=== PATIENT | female | born 1935 ===

== ENCOUNTER 2016-12-13 17:21 | Inpatient (IN) | payer MEDICARE ==
--- NOTE | ~2016-12-13 | EGD ---
EGD REPORT [facility] [address] [place] [address] NAME: SARAH CORDERO : 33 STATUS : DIS IN PAT#: [id number] AGE: 81 ADM/REG DATE : 12/13/16 MR#: [id number] REPORT SERV DATE: 12/29/16 DICTATED BY: KELLY QUINTERO DATE: 12/29/16 REPORT STATUS : Draft TRANSCRIBED BY: [employer] DATE: 12/29/16 Pulmonology Patient Name: Sarah Cordero. Procedure Date: 12/16/2016 1:21 PM Date of : 1935 Attending MD: SENIA QUINTERO MD Procedure Date No Time: 12/16/2016 Procedure: EBUS/NAVIGATION BRONCHOSCOPY Indications: Right lower lobe lung mass Providers: SENIA QUINTERO MD Referring MD: Josie Mixon Medicines: Lidocaine 2% 20 mL Complications: No immediate complications Procedure: Pre-Anesthesia Assessment: - ASA Grade Assessment: III - A patient with severe systemic disease. - After reviewing the risks and benefits, the patient was deemed in satisfactory condition to undergo the procedure. - A History and Physical has been performed. Patient meds and allergies have been reviewed. The risks and benefits of the procedure and the sedation options and risks were discussed with the patient. All questions were answered and informed consent was obtained. Patient identification and proposed procedure were verified prior to the procedure by the physician and the nurse in the pre-procedure area in the procedure room. Mental Status Examination: normal. CV Examination: normal and RRR, no murmurs, no S3 or S4. ASA Grade Assessment: IV - A patient with severe systemic disease that is a constant threat to life. After reviewing the risks and benefits, the patient was deemed in satisfactory condition to undergo the procedure. The anesthesia plan was to use general anesthesia. Immediately prior to administration of medications, the patient was re-assessed for adequacy to receive sedatives. The heart rate, respiratory rate, oxygen saturations, blood pressure, adequacy of pulmonary ventilation, and response to care were monitored throughout the procedure. The physical status of the patient was re-assessed after the procedure. After obtaining informed consent, the Bronchoscope was introduced through the mouth, via the endotracheal tube (the patient was intubated for the procedure) and advanced to the tracheobronchial tree. the BF [id number] was introduced through the and advanced to the. EGD REPORT [facility] [id number] [place]. [address] NAME: SARAH CORDERO : 33 STATUS : DIS IN PAT#: [id number] AGE: 81 ADM/REG DATE : 12/13/16 MR#: [id number] REPORT SERV DATE: 12/29/16 DICTATED BY: KELLY QUINTERO DATE: 12/29/16 REPORT STATUS : Draft TRANSCRIBED BY: [employer] DATE: 12/29/16 The procedure was accomplished without difficulty. The patient tolerated the procedure well. Findings: The endotracheal tube is in good position. The visualized portion of the trachea is of normal caliber. The sebastian is sharp. The tracheobronchial tree was examined to at least the first subsegmental level. Bronchial mucosa is irregular at the orifice of the RLL. EBUS TBNA of lymph node level 11L x 5 passes for cytology EBUS TBNA of lymph node level 4L x 5 passes for cytology EBUS TBNA of lymph node level 7 x 4 passes for cytology EBUS TBNA of lymph node level 4R x 4 passes for cytology EBUS TBNA of lymph node level 11R x 4 passes for cytology Using SuperDimension Edge catheter (Medial), peripheral probe EBUS 17s, and LungVision 3D fluoroscopy, I performed the following biopsies: RLL lung mass transbronchial needle aspirates x 4 passes for cytology RLL lung mass transbronchial brush biopsy x 1 pass for cytology RLL lung mass transbronchial forcep biopsies x 3 passes for histopathology Bronchoalveolar lavage was performed in the right lower lobe of the lung and sent for routine cytology. 30 mL of fluid were instilled. 10 mL were returned. The return was blood-tinged and cellular. Impression: Rapid On-Site Evaluation (LIZ): Preliminary cytology is POSITIVE for malignancy (final results are pending). Recommendation: - Await test results. - Chest X-ray. - Refer to/consult with Oncology. Attending Participation: I personally performed the entire procedure. SENIA QUINTERO MD 12/16/2016 3:45 PM This report has been signed electronically. Number of Addenda: 0 Note Initiated On: 12/16/2016 1:21 PM [address] [id number]
--- NOTE | ~2016-12-13 | HP ---
History And Physical [place] [place]. [address] NAME: FRED CORDERO : 33 STATUS : ADM IN [facility]#: [id number] AGE: 81 ADM/REG DATE : 12/13/16 MR#: [id number] REPORT SERV DATE: 12/14/16 DICTATED BY: AISHWARYA ARRIOLA DATE: 12/13/16 REPORT STATUS : Draft TRANSCRIBED BY: MODL DATE: 12/13/16 DATE OF ADMISSION: 12/13/2016 REASON FOR ADMISSION: Syncope with collapse, also cachexia, failure to thrive, and microcytic anemia, and hematochezia. HISTORY OF PRESENT ILLNESS: Ms. Cordero is an 81-year-old female with history of hypertension, chronic kidney disease who is actually status post hospitalization at [place] [address] during which she was diagnosed with a lung mass and with anticipated EBUS on 12/16/2016 who presents to emergency department today after an event where she was found on the floor but has no recollection of how she got there. According to the son and to the niece, she has had multiple episodes of loss of consciousness particularly when she is at sitting position and tries to arise. The patient, however, denies any dizziness. No chest pain or palpitations. She denies recollection of any these events actually, and the family says that the memory has become more impaired lately. Notably since her previous hospitalization though she has also been eating very little like 1-1/2 cans of Ensure only a day, and she has lost 30 pounds in the last 5 weeks. She denies any abdominal pain, however, that was the chief complaint of her prior admission. She denies any gastrointestinal or genitourinary complaints. However, her niece said that she has had an episode of hematochezia and had been referred to GI for workup based on her iron-deficiency anemia. There has been no shortness of breath, coughing, or wheezing but the son says she is very out of breath and very weak, unable to even walk down the sigala and having difficulty rising on her own. She is requiring full-time care. The patient has no focal neurologic complaints, and she refuses the rehabilitation, however, the son and the niece insists that she is no longer safe to be at home at the present time. There has been some nausea but no vomiting. Remainder of review of systems are negative. PAST MEDICAL HISTORY: As mentioned above. History of iron-deficiency as mentioned. She has history of depression requiring electroconvulsive therapy remotely. MEDICATIONS: Include aspirin, vitamin D, Synthroid, Toprol, Remeron, Prilosec, Pravachol, and B12. ALLERGIES: ALLERGIC TO CODEINE. FAMILY HISTORY: Positive for coronary artery disease. SOCIAL HISTORY: She is a previous smoker but quit 1971. She is . Her is also infirm. PHYSICAL EXAMINATION: VITAL SIGNS: On presentation, blood pressure 111/79, pulse 111, respiratory rate , afebrile . GENERAL: Mildly confused, pallid white female, oriented x3. No apparent distress. HEENT: Pupils are equal and reactive to light. Extraocular movements are intact. No cranial nerve deficits. Dry mucous membranes. Normal oropharynx. History And Physical [address] [address] NAME: FRED CORDERO : 33 STATUS : ADM IN [facility]#: [id number] AGE: 81 ADM/REG DATE : 12/13/16 MR#: [id number] REPORT SERV DATE: 12/14/16 DICTATED BY: AISHWARYA ARRIOLA DATE: 12/13/16 REPORT STATUS : Draft TRANSCRIBED BY: LEONOR DATE: 12/13/16 NECK: Revealed no jugular venous distention, carotid bruits, lymphadenopathy, or goiter. CARDIAC: Regular rate and rhythm. No murmurs, gallops, or rubs. LUNGS: Clear to auscultation bilaterally. Good excursion. ABDOMEN: Soft, nondistended, and nontender. Bowel sounds normoactive. EXTREMITIES: No cyanosis, clubbing, or edema. Good pulses and capillary refill. NEUROLOGIC: 5/5 strength in all four extremities. Normal sensory and motor function x4. SKIN: Warm and dry with poor turgor. PSYCHIATRIC: She is appropriate. LABORATORY EVALUATION: Sodium 138, potassium 3.4, chloride 103, bicarb 24, BUN 18, creatinine 2.2 similar to prior, glucose 115, abdomen 1.7 gammaglobulin 6.2 with normal total protein, normal liver function enzymes. White count 9000, H and H 05/06, platelets 512, MCV of 77. CT of the thorax from 10/23/2016 was reviewed by me. A 4 x 2 cm mass in the right lower lobe was noted with associated air bronchograms but no history of pneumonia. EKG showed inferior Q-waves, QT interval 466. ASSESSMENT AND PLAN: 1. Syncope likely orthostatic. We rechecked orthostatic vital signs. She will be hydrated overnight. We will reassess her blood pressure in the morning. Telemetry overnight, echocardiogram. I see no evidence to suggest pulmonary embolization or a neurological cause such as seizure as a source of her syncopal events and did not recommend further imaging in regard to these. I do, however, recommend repletion of the potassium as she has a somewhat prolonged QT interval and may be at risk of dysrhythmia from that. Magnesium will also be investigated due to her very poor p.o. intake and probability of deficiency there as well. 2. Iron deficiency anemia with history of hematochezia. I am very concerned about a GI bleed. Anemia may in fact contribute to her orthostasis. We will confirm her iron stores here. IV iron will be given, and GI will see her. Stools will be guaiaced to confirm the report. Dr. Leal should be noted had recommended an EGD be done. She will continue on her proton pump inhibitors but given the concern for malignancy she may need both an upper and lower endoscopic evaluation. 3. Cachexia 30 pounds weight loss with diminished p.o. intake, consistent with failure to thrive syndrome. Question of cardiac cachexia with a questionable pulmonary malignancy. This is non spiculated and may very well be a metastasis. Dr. Alejandre will be notified of her hospitalization to proceed with her EBUS. We should, however, be concerned about the possibility of other malignant causes or non malignant causes. If we notice a very elevated gammaglobulin gradient, we will check and see whether this is monoclonal, polyclonal, will be done. Sedimentation rate will be investigated to inspect for chronic inflammatory state. She will be supplemented with Ensure. We will hydrate her, check calorie counts and also increase her Remeron therapy. 4. Generalized weakness. The patient wishes to go home but she does not appear to be in that state to do so. Physical Therapy and [facility] facility placement were recommended. We will consult Case Management. History And Physical [address] [place]. [address] NAME: FRED CORDERO : 33 STATUS : ADM IN PAT#: [id number] AGE: 81 ADM/REG DATE : 12/13/16 MR#: [id number] REPORT SERV DATE: 12/14/16 DICTATED BY: AISHWARYA ARRIOLA DATE: 12/13/16 REPORT STATUS : Draft TRANSCRIBED BY: MODL DATE: 12/13/16 5. Chronic kidney disease. Creatinine same as before. We will see if this improves at all with hydration and follow it closely. ANA/LEONOR Aishwarya Arriola M.D. / [id number] CC: Erin Herrera M.D. Krishnendu Bhadra, M.D.
--- NOTE | ~2016-12-13 | EGD ---
EGD REPORT [facility] [address] [place] [address] NAME: SARAH CORDERO : 33 STATUS : DIS IN PAT#: [id number] AGE: 81 ADM/REG DATE : 12/13/16 MR#: [id number] REPORT SERV DATE: 12/29/16 DICTATED BY: KELLY QUINTERO DATE: 12/29/16 REPORT STATUS : Draft TRANSCRIBED BY: [employer] DATE: 12/29/16 Pulmonology Patient Name: Sarah Cordero. Procedure Date: 12/16/2016 1:21 PM Date of : 1935 Attending MD: SENIA QUINTERO MD Procedure Date No Time: 12/16/2016 Procedure: EBUS/NAVIGATION BRONCHOSCOPY Indications: Right lower lobe lung mass Providers: SENIA QUINTERO MD Referring MD: Josie Mixon Medicines: Lidocaine 2% 20 mL Complications: No immediate complications Procedure: Pre-Anesthesia Assessment: - ASA Grade Assessment: III - A patient with severe systemic disease. - After reviewing the risks and benefits, the patient was deemed in satisfactory condition to undergo the procedure. - A History and Physical has been performed. Patient meds and allergies have been reviewed. The risks and benefits of the procedure and the sedation options and risks were discussed with the patient. All questions were answered and informed consent was obtained. Patient identification and proposed procedure were verified prior to the procedure by the physician and the nurse in the pre-procedure area in the procedure room. Mental Status Examination: normal. CV Examination: normal and RRR, no murmurs, no S3 or S4. ASA Grade Assessment: IV - A patient with severe systemic disease that is a constant threat to life. After reviewing the risks and benefits, the patient was deemed in satisfactory condition to undergo the procedure. The anesthesia plan was to use general anesthesia. Immediately prior to administration of medications, the patient was re-assessed for adequacy to receive sedatives. The heart rate, respiratory rate, oxygen saturations, blood pressure, adequacy of pulmonary ventilation, and response to care were monitored throughout the procedure. The physical status of the patient was re-assessed after the procedure. After obtaining informed consent, the Bronchoscope was introduced through the mouth, via the endotracheal tube (the patient was intubated for the procedure) and advanced to the tracheobronchial tree. the BF [id number] was introduced through the and advanced to the. EGD REPORT [facility] [id number] [place]. [address] NAME: SARAH CORDERO : 33 STATUS : DIS IN PAT#: [id number] AGE: 81 ADM/REG DATE : 12/13/16 MR#: [id number] REPORT SERV DATE: 12/29/16 DICTATED BY: KELLY QUINTERO DATE: 12/29/16 REPORT STATUS : Draft TRANSCRIBED BY: [employer] DATE: 12/29/16 The procedure was accomplished without difficulty. The patient tolerated the procedure well. Findings: The endotracheal tube is in good position. The visualized portion of the trachea is of normal caliber. The sebastian is sharp. The tracheobronchial tree was examined to at least the first subsegmental level. Bronchial mucosa is irregular at the orifice of the RLL. EBUS TBNA of lymph node level 11L x 5 passes for cytology EBUS TBNA of lymph node level 4L x 5 passes for cytology EBUS TBNA of lymph node level 7 x 4 passes for cytology EBUS TBNA of lymph node level 4R x 4 passes for cytology EBUS TBNA of lymph node level 11R x 4 passes for cytology Using SuperDimension Edge catheter (Medial), peripheral probe EBUS 17s, and LungVision 3D fluoroscopy, I performed the following biopsies: RLL lung mass transbronchial needle aspirates x 4 passes for cytology RLL lung mass transbronchial brush biopsy x 1 pass for cytology RLL lung mass transbronchial forcep biopsies x 3 passes for histopathology Bronchoalveolar lavage was performed in the right lower lobe of the lung and sent for routine cytology. 30 mL of fluid were instilled. 10 mL were returned. The return was blood-tinged and cellular. Impression: Rapid On-Site Evaluation (LIZ): Preliminary cytology is POSITIVE for malignancy (final results are pending). Recommendation: - Await test results. - Chest X-ray. - Refer to/consult with Oncology. Attending Participation: I personally performed the entire procedure. SENIA QUINTERO MD 12/16/2016 3:45 PM This report has been signed electronically. Number of Addenda: 0 Note Initiated On: 12/16/2016 1:21 PM [address] [id number]
--- NOTE | ~2016-12-13 | IDS ---
Interim Discharge Summary [facility] [address] [place]. [address] NAME: FRED CORDERO : 33 STATUS : ADM IN PAT#: [id number] AGE: 81 ADM/REG DATE : 12/13/16 MR#: [id number] REPORT SERV DATE: 12/21/16 DICTATED BY: JOSIE MIXON DATE: 12/21/16 REPORT STATUS : Draft TRANSCRIBED BY: MODL DATE: 12/21/16 ADMISSION DATE: 12/13/2016 DISCHARGE DATE: DISCHARGE DIAGNOSES: 1. Failure to thrive with significant weight loss with protein-calorie severe malnutrition. 2. Depression. The patient is seen by Dr. Escamilla, but she refused treatment; however, assessment was a severe depression and Remeron was increased. 3. Non-small cell lung cancer from the EBUS biopsy, seen by Dr. Welch and had a negative MRI of the brain. The patient will go to rehab to improve strength, then decide about her treatment. 4. Hypertension. 5. Chronic kidney disease, stable. 6. Desaturation after the EBUS. The patient needed a couple doses of intravenous Lasix with albumin. 7. Hypoalbuminemia with severe malnutrition. 8. Underlying obesity. HISTORY OF PRESENT ILLNESS: This is an 81-year-old female patient, who came to the hospital with failure to thrive, weight loss, and finding of the upper lung nodule, was scheduled for outpatient biopsy. Please see dictated H and P done by Dr. Sanchez. HOSPITAL COURSE: She was admitted to hospital with following problem and had evaluation with Dr. Alejandre, bronchoscopy. The bronchoscopy was positive for adenocarcinoma, and seen by Dr. Welch regarding the treatment and plan. However, the patient's functional status has been marginally low and recommended getting physical therapy. Meanwhile, she was evaluated by Dr. Escamilla; however, she refused to have an official evaluation with Dr. Escamilla saying she is not depressed. However, multiple expertise are suspecting that she have depression. Her Remeron was increased to 45 mg once at nighttime. I had a long discussion regarding the disposition. The patient seem to be demotivated and weak and had a long discussion with the patient and she decided to go to the rehab place in order to improve her functional status before the treatments decision. Therefore, the disposition was made at [facility]. Currently today [facility] does not have a bed availability, so the patient will be discharged tomorrow to [facility]. After the EBUS, her saturation was gradually going down and yesterday her saturation was 88% on room air with finding of crackles and volume overload evidence. Therefore, the patient was given the albumin and Lasix and did a good output with it and does not require resting oxygen at this point. We are going to stop anymore Lasix because of the chronic kidney disease, and she will be waiting for the discharge when it is available from the [facility]. Overall, had a stable hospitalization except the last couple of days she has been desaturating and she and her family had a long discussion with the multiple doctors here and they all voiced understanding, [facility] even follow this patient. They are not ready for hospice at this moment of discharge and they willing to try to get improvement Interim Discharge Summary [place] [address] [place] [address] NAME: FRED CORDERO : 33 STATUS : ADM IN [facility]#: [id number] AGE: 81 ADM/REG DATE : 12/13/16 MR#: [id number] REPORT SERV DATE: 12/21/16 DICTATED BY: JOSIE MIXON DATE: 12/21/16 REPORT STATUS : Draft TRANSCRIBED BY: LEONOR DATE: 12/21/16 functionally at [facility] after the rehab. BRIAN/LEONOR Josie Mixon M.D. / [id number] CC: Erin Lovett M.D.
--- NOTE | ~2016-12-13 | DS ---
Discharge Summary [facility] [address] [place]. [address] NAME: FRED CORDERO : 33 STATUS : DIS IN PAT#: [id number] AGE: 81 ADM/REG DATE : 12/13/16 MR#: [id number] REPORT SERV DATE: 12/24/16 DICTATED BY: LUZ ELENA TORRES II DATE: 12/23/16 REPORT STATUS : Draft TRANSCRIBED BY: MODL DATE: 12/23/16 ADMISSION DATE: 12/13/2016 DISCHARGE DATE: 12/23/2016 DISCHARGE DIAGNOSES: 1. Failure to thrive with significant weight loss and severe protein-calorie malnutrition. 2. Severe depression. 3. [id number] lung cancer. 4. Hypertension. 5. Acute kidney injury on chronic kidney disease stage 3. 6. Transient hypoxia after EBUS, now resolved. 7. Hypoalbuminemia. 8. Underlying obesity. HOSPITAL COURSE: For details of the patient's hospitalization, please see Dr. Mixon's interim summary from 12/21/2016. The patient was awaiting transfer to long term facility for further rehab; however, her creatinine started to trend up and went from her baseline of around 1.7 up to 2 and then 2.5, peaking at 2.7. She did receive some diuretics after transient hypoxia after EBUS and may have contributed. This has trended down after giving IV fluid bolus and her urinalysis has no evidence of infection. She also had some occasional low-grade fevers of 100.3 and one several days ago of 100.8, likely related to her EBUS with biopsies. Currently, no evidence of pneumonia infection or UTI. These seems to have stabilized and she is no longer febrile. Otherwise, she will proceed to rehab and then follow with Dr. Welch for consideration for possible treatment and if her physical status improves as of now given her failure to thrive and depression, she is not a good candidate for chemotherapy. DISCHARGE MEDICATIONS: 1. Synthroid 50 mcg p.o. daily. 2. Toprol-XL 50 mg p.o. q.h.s. 3. Prilosec 20 mg p.o. b.i.d. 4. Maximum D3 one capsule p.o. Wednesday and . 5. Aspirin 81 mg p.o. daily. 6. Vitamin B12 tablet, OTC capsule daily. 7. Pravastatin 80 mg p.o. q.h.s. 8. Remeron 15 mg p.o. q.h.s. DISCHARGE INSTRUCTIONS: The patient will follow up with Dr. Welch in one to two weeks. BRODIE/LEONOR Luz Elena Torres II, MD Discharge Summary [address] [address] NAME: FRED CORDERO : 33 STATUS : DIS IN PAT#: [id number] AGE: 81 ADM/REG DATE : 12/13/16 MR#: [id number] REPORT SERV DATE: 12/24/16 DICTATED BY: LUZ ELENA TORRES II DATE: 12/23/16 REPORT STATUS : Draft TRANSCRIBED BY: LEONOR DATE: 12/23/16 / [id number] CC: MD Choco Loza II, M.D.
--- NOTE | ~2016-12-13 | CN ---
Consultation Report [facility] [address] [place]. [address] NAME: FRED CORDERO : 33 STATUS : ADM IN PAT#: [id number] AGE: 81 ADM/REG DATE : 12/13/16 MR#: [id number] REPORT SERV DATE: 12/18/16 DICTATED BY: SERGO WELCH DATE: 12/17/16 REPORT STATUS : Draft TRANSCRIBED BY: MODL DATE: 12/17/16 HEMATOLOGY/ONCOLOGY INITIAL CONSULTATION REPORT DATE OF CONSULTATION: 12/17/2016 Consult from Anthony Funk of Pulmonary Service. REASON FOR CONSULT: Regarding non-small cell lung cancer. CHIEF COMPLAINT: Fatigue and syncope. HISTORY OF PRESENT ILLNESS: Ms. Cordero is an 81-year-old white woman with a remote history of smoking with past medical history of chronic kidney disease, depression, and GERD, who presented to [facility] in 10/2016 for weight loss and fatigue. CT scans were performed showing a 2.1 x 3.9 x 3.4 cm mass in the right lower lobe. There was also a 5.9 x 7.9 mm low density nodule in the lingular segment of the left upper lobe of unknown etiology. No obvious lymphadenopathy. A CT of the abdomen and pelvis without contrast was performed showing no acute abnormality in the abdomen or pelvis. Consolidation in the right hilum and lower lobes suspicious for malignancy. A bronchoscopy was performed on 10/30/2016, but they were unable to reach the mass. Biopsies were still taken, but were negative for malignancy. The patient was discharged and was scheduled for outpatient CT scan to monitor the mass. However, the patient continued to have significant fatigue and poor appetite. She then had a syncopal episode and was brought to [facility]. She was hospitalized and a bronchoscopy with EBUS was discussed. This was performed on 12/16/2016. Pathology is currently pending, but the on-site pathologic evaluation was positive for malignancy that was likely non-small cell lung cancer. Oncology was consulted for her newly diagnosed lung cancer. Currently, Ms. Cordero feels terrible. She states she has never been sick and absolutely feels terrible now. She denies chest pain. She does have a dry cough, which started after the bronchoscopy. She denies any cough prior to the hospitalization. She has been having shortness of breath over the last few weeks. She denies hemoptysis. She has a poor appetite and has lost roughly 30 pounds over the past five to six weeks. She denies abdominal pain at this time, but had been reporting abdominal pain at her prior hospitalization. She has had some nausea without vomiting. There is also a potential episode of hematochezia which GI was consulted for; however, Ms. Cordero has declined colonoscopy. She is quite depressed and has been seen by Psychiatry. She is currently on Remeron and family believes the appetite may have increased slightly. She has stable renal function with good urine output. Her hypertension has been well controlled with medication. PAST MEDICAL HISTORY: 1. Newly diagnosed non-small cell lung cancer. 2. Chronic kidney disease. 3. Depression, which is severe having previously required electroconvulsive therapy. 4. Hyperlipidemia. Consultation Report [address] [place]. [address] NAME: FRED CORDERO : 33 STATUS : ADM IN [facility]#: [id number] AGE: 81 ADM/REG DATE : 12/13/16 MR#: [id number] REPORT SERV DATE: 12/18/16 DICTATED BY: SERGO WELCH DATE: 12/17/16 REPORT STATUS : Draft TRANSCRIBED BY: LEONOR DATE: 12/17/16 5. Hypertension. 6. GERD. ALLERGIES: CODEINE. MEDICATIONS: Medication were reviewed from [facility]. FAMILY HISTORY: No history of cancer in the family. Father and mother from heart disease. SOCIAL HISTORY: She is , lives with her . She is a former smoker having smoked approximately a pack a day for about 15 years, but quit in 1965. Denies alcohol or illicit drug use. REVIEW OF SYSTEMS: A comprehensive review of systems was performed, and was negative except for what was previously mentioned in the HPI. PHYSICAL EXAMINATION: VITAL SIGNS: Temperature, T-max 100.6, T current 100 degrees, pulse 106, respirations 16, blood pressure 132/61, pulse ox of 95% on room air. GENERAL: Elderly, well-developed, well-nourished white woman, in no acute distress. HEENT: Pupils are equal, round, and reactive to light. Extraocular movements are intact. Conjunctivae and lids are normal. Sclerae anicteric. Moist mucous membranes. Dentures in place. Tongue and oropharynx normal without exudate, masses, mucositis, or thrush. NECK: Supple. No JVD. Trachea midline. LYMPHATICS: No cervical, supraclavicular, or axillary lymphadenopathy. CHEST: Normal respiratory effort. Clear to auscultation bilaterally anteriorly. CARDIOVASCULAR: Tachycardic, regular rhythm. No murmurs, rubs, or gallops. ABDOMEN: Soft, nontender, nondistended. Positive bowel sounds. No palpable hepatosplenomegaly. EXTREMITIES: No clubbing, cyanosis, or edema. SKIN: Warm, dry, intact. No rashes or ecchymoses visualized. No palpable nodules. NEUROLOGIC: No focal deficits. PSYCHIATRIC: Awake, alert, oriented. Flat affect and clearly depressed. Family answered most of the questions as the patient was dozing during most of the visit; however, appeared to have adequate insight based on her few responses. LABORATORY DATA: CBC: White count and 7200, hemoglobin 8.9 g/dL, hematocrit 27.7%, platelets 460,000, MCV of 78. INR of 1.3. PT of 16.4. BUN of 10, creatinine 1.70, potassium 3.1. SPEP shows an increase in gammaglobulin, which appears to be polyclonal. Serum immunofixation electrophoresis showing a faint IgG kappa restriction. ASSESSMENT AND PLAN: Ms. Cordero is an 81-year-old white woman with history of depression, chronic kidney disease, GERD, admitted for a poor appetite, fatigue, and syncope. Prior Consultation Report [address] [place]. [address] NAME: FRED CORDERO : 33 STATUS : ADM IN [facility]#: [id number] AGE: 81 ADM/REG DATE : 12/13/16 MR#: [id number] REPORT SERV DATE: 12/18/16 DICTATED BY: SERGO WELCH DATE: 12/17/16 REPORT STATUS : Draft TRANSCRIBED BY: MODL DATE: 12/17/16 admission in 10/2016 showed a lung mass. Biopsy showed malignancy, prompting consultation. 1. Lung cancer: I have reviewed Ms. Cordero's records. I personally viewed her CT images, shows a mass in the right lower lobe. The scan was noncontrasted, but I am also concerned for kali involvement. Biopsy was positive for malignancy, but await final pathology. Suspect has stage III disease, but does need further evaluation for distant metastases especially with recent concern for a pancreatic lesion noted on an ultrasound. I would recommend a PET scan as an outpatient and an MRI of the brain. I will order the MRI of the brain, but will have to be cognizant of her chronic kidney disease. Treatment is based on staging. If she is stage III, treatment would be chemotherapy and radiation. Her performance status is borderline, but I would offer treatment if she could walk into clinic. However, the patient is not sure if she would accept treatment. I did explain that stage III disease is potentially curable. We will let her think about her options and discuss with her in a.m. 2. Depression: I believe depression is contributing to her weakness and weight loss. I agree with Renetta and appreciate the psychiatry's assistance. 3. Monoclonal gammopathy: Ms. Cordero's SPEP appears to show polyclonal disease and the immunofixation shows a faint IgG kappa restriction. I believe she has chronic kidney disease that is not related to her monoclonal gammopathy. I will order a serum free light chain in total quantitative immunoglobulins, but do not believe any further evaluation with bone marrow biopsy or other tests are necessary. I appreciate the consult and allowing me to take part in Ms. Cordero's care. BRN/MODL Sergo Welch MD / [id number] CC: Erin Lovett M.D.
--- NOTE | ~2016-12-13 | CN ---
Consultation Report [facility] [address] [place]. [address] NAME: SARAH CORDERO : 33 STATUS : ADM IN PAT#: [id number] AGE: 81 ADM/REG DATE : 12/13/16 MR#: [id number] REPORT SERV DATE: 12/15/16 DICTATED BY: TOÑO STARK DATE: 12/14/16 REPORT STATUS : Draft TRANSCRIBED BY: MODL DATE: 12/14/16 CONSULTATION NOTE DATE OF CONSULTATION: 12/14/2016 CHIEF COMPLAINT: Syncope in a patient with a previously known area of right lower lobe masslike consolidation. HISTORY OF PRESENT ILLNESS: Mrs. Sarah Cordero is an 81-year-old white female with a past medical history significant for iron deficiency anemia, chronic kidney disease, and hypertension, who presents to [facility] Emergency Room with complaints of syncope. It should be noted that, the patient was hospitalized as recently as October of this year when she was seen by Dr. Lucille Borja in our Pulmonary Service. Again Mrs. Cordero is followed by Dr. Lucille Borja for her pulmonary needs. Her home medicine list does not reflect any pulmonary medications. She is not usually on supplemental oxygen. The patient quit smoking in the 1970s. Prior to this time, she smoked approximately one pack a day for a period of fifteen years. She largely denies symptomatology related to obstructive sleep apnea. She has difficulty quantifying her exercise tolerance today. Again, the patient was seen as recently as October of this year by our Pulmonary Service for concerns related to an area of consolidation or possibly lung mass in her right lower lobe. She was treated with antibiotics during this time. At that time, the plan was for followup imaging or even to pursue biopsy to rule out malignancy. Prior to this day, she apparently had an episode of syncope upon standing. This prompted her presentation to [facility] Emergency Room. Upon arrival, she was found to be normotensive and afebrile. Initial blood work revealed a white blood cell count of 9500, hemoglobin and hematocrit of 9.4 and 29.8, creatinine was noted to be 2.11. She was admitted for further workup of her orthostasis and potentially a GI bleed. During her admittance process, it became aware that she did have a previously scheduled outpatient bronchoscopy and as such, Pulmonary has been consulted. Currently, the patient is on room air. She denies any shortness of breath, cough, or wheezing. The patient does have previous history of hypertension and dyslipidemia. She currently denies any murmurs, angina, or palpitations. She denies any orthopnea or paroxysmal nocturnal dyspnea or edema. In regard to constitutional symptoms, she has had an episode of syncope. She denies any fever, chills, nausea, vomiting, chest pain, abdominal pain, or edema. PAST MEDICAL HISTORY: Consultation Report [address] [place]. [address] NAME: SRAAH CORDERO : 33 STATUS : ADM IN PAT#: [id number] AGE: 81 ADM/REG DATE : 12/13/16 MR#: [id number] REPORT SERV DATE: 12/15/16 DICTATED BY: TOÑO STARK DATE: 12/14/16 REPORT STATUS : Draft TRANSCRIBED BY: LEONOR DATE: 12/14/16 1. Hypertension. 2. Chronic kidney disease. 3. Dyslipidemia. 4. Gastroesophageal reflux disease. PAST SURGICAL HISTORY: Partial hysterectomy. FAMILY HISTORY: The patient denies family history of lung disease. SOCIAL HISTORY: The patient is . She denies any known exposures to dust, silica, or asbestos. TOBACCO/ALCOHOL: As previously mentioned, the patient quit smoking in 1970s, prior to this time, she smoked approximately one pack a day for a period of fifteen years. MEDICATIONS: Aspirin 81 mg, levothyroxine 50 mcg, metoprolol 50 mg, mirtazapine 15 mg, omeprazole 20 mg, pravastatin 80 mg. ALLERGIES: THE PATIENT HAS ALLERGY TO CODEINE. REVIEW OF SYSTEMS: The patient has had significant weight loss as of yet as well as decreased appetite. Otherwise, pertinent positives and negatives are contained within the body of the HPI. PHYSICAL EXAMINATION: VITAL SINGS: Blood pressure is 164/84, heart rate is 109, T-max is 97.9, respiratory rate is 18, and SpO2 is 95% on room air. GENERAL: The patient is a pleasant, well-nourished/well-developed female, who is not currently exhibiting any signs of acute distress. Skin: Skin with appropriate texture and turgor. No rashes, lesions, or ulcers. Nails are clear without cyanosis or clubbing. HEENT: Head: Skull is normocephalic/atraumatic. Facies symmetric. No masses or lesions. Eyes: Sclera anicteric, conjunctiva pink without exudates. Extra ocular movements intact. Pupils are equal, round, reactive to light. Ears: Auricles and tragus without pain to palpation. Hearing is grossly intact. Nose: Bilateral nasal patency. Sinuses without tenderness upon palpation. Throat: Dentition. Lips, oral mucosa, tongue, palate, and pharynx pink and moist without lesions. Uvula rises equally on phonation. Tongue midline without deviation. NECK: Neck supple. Trachea midline. No cervical lymphadenopathy appreciated. THORAX/LUNGS: Thorax is symmetric with equal chest rise. Breath sounds audible through entire field. No rales, wheezes, rhonchi CARDIOVASCULAR: Regular rate and rhythm. No murmurs, rubs, or gallops. Anterior chest without thrills, heaves, or lifts. ABDOMEN: Soft. Non-distended, non-tender. Active bowel sounds in all four quadrants. No hepatosplenomegaly noted. Consultation Report [address] [place]. [address] NAME: SARAH CORDERO : 33 STATUS : ADM IN [facility]#: [id number] AGE: 81 ADM/REG DATE : 12/13/16 MR#: [id number] REPORT SERV DATE: 12/15/16 DICTATED BY: TOÑO STARK DATE: 12/14/16 REPORT STATUS : Draft TRANSCRIBED BY: LEONOR DATE: 12/14/16 PERIPHERAL VASCULAR: No edema. No varicosities, stasis changes, open sores, ulcerations, or phlebitis. 2+ pulses in radial and dorsalis pedis. MUSCULOSKELETAL: Full AROM and PROM in all joints. No evidence of erythema, deformity, or crepitus. NEUROLOGIC: CN II - XII grossly intact. Good muscle bulk and tone bilaterally. Strength 5/5 throughout. PSYCHIATRIC: Patient demonstrates good judgment and insight. Pt is A&O x 3. ACCESSORY DATA: Reveals a creatinine of 1.80, Mag is 1.7. IMPRESSION: 1. Syncope. 2. Possible gastrointestinal bleed. 3. Lung mass versus consolidation. PLAN: At this time, we will tentatively plan for bronchoscopy on Wednesday. We will check the patient's PT/INR as well as other hematologic markers. We will discuss possible re- imaging prior to procedure. The aforementioned impression and plan has been discussed with Dr. Conrad, who will follow further recommendations. We thank you for this consult and look forward to participating in the care of Mrs. Sarah Cordero. GBS/MODL Toño Stark PA-C / [id number] CC: MD Choco Hoyt M.D.
--- NOTE | ~2016-12-13 | CN ---
Consultation Report [facility] [address] [place]. [address] NAME: FRED CORDERO : 33 STATUS : ADM IN PAT#: [id number] AGE: 81 ADM/REG DATE : 12/13/16 MR#: [id number] REPORT SERV DATE: 12/16/16 DICTATED BY: REJI BOLAND DATE: 12/16/16 REPORT STATUS : Draft TRANSCRIBED BY: MODL DATE: 12/16/16 PSYCHIATRIC CONSULTATION DATE OF CONSULTATION: 12/16/2016 I reviewed the patient's current and old medical record. I discussed her history with her son who was at the bedside. I discussed her history with her granddaughter who is a nurse. HISTORY OF PRESENT ILLNESS: She was admitted with episodes of syncope. She has a questionable lung mass, and she is scheduled for an EBUS later today. She has a history of a 30-pound weight loss over the past 5 weeks or so. This weight loss, apparently was associated with a loss of appetite. PAST PSYCHIATRIC HISTORY: She had a psychiatric hospitalization over 10 years ago, when she was given a course of ECTs with good effect. She reports that she has experienced other episodes of depression throughout her adult life and that she was prescribed antidepressant medication for these. She was unable to remember the names of any antidepressant medications or to state whether or not these medications were effective. She said she was diagnosed with bipolar disorder when she was hospitalized, but other family members were unable to confirm this. Apparently, she has been stable without any psychotropic medication over the past 10 years or more. SOCIAL HISTORY: She lives with her . 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 FAMILY HISTORY: She reports no psychiatric illness. MENTAL STATUS: She was very cooperative in attitude. She angrily and repeatedly said "I told you I am not depressed" - "I know what depression is. I have been depressed in the past." She remained defensive and angry throughout this examination. Her affect was appropriate. Her thinking was logical. She had no delusions. She had no hallucinations. She was oriented to time, place, and person. She avoided making eye contact, lying on her side, looking away from me. She clearly wanted me to terminate this examination and to go away. DIAGNOSIS: Major depressive episode, recurrent. This seems the most likely diagnosis, but it is difficult to confirm because of her uncooperative attitude and her denial. I will increase the Remeron and switch her to the soluble tablet. I will increase it to 45 mg at bedtime. I will follow up. KIKA/LEONOR Reji Consultation Report [address] [place] [address] NAME: FRED CORDERO : 33 STATUS : ADM IN PAT#: [id number] AGE: 81 ADM/REG DATE : 12/13/16 MR#: [id number] REPORT SERV DATE: 12/16/16 DICTATED BY: REJI BOLAND. DATE: 12/16/16 REPORT STATUS : Draft TRANSCRIBED BY: LEONOR DATE: 12/16/16 Erin Boland / [id number] CC: Erin Lovett M.D.
--- NOTE | ~2016-12-13 | CN ---
Consultation Report [facility] [address] [place]. [address] NAME: FERD CORDERO : 33 STATUS : ADM IN [facility]#: [id number] AGE: 81 ADM/REG DATE : 12/13/16 MR#: [id number] REPORT SERV DATE: 12/15/16 DICTATED BY: ABBY ALLEN DATE: 12/15/16 REPORT STATUS : Draft TRANSCRIBED BY: MODL DATE: 12/15/16 GI CONSULTATION DATE OF CONSULTATION: 12/14/2016 REASON FOR CONSULTATION: Anemia. HISTORY OF PRESENT ILLNESS: Ms. Cordero is an 81-year-old white female with a history of a lung mass, who had been seen at [facility] in October of this year with plans for EBUS on Wednesday for further evaluation, who presented to [facility] with syncope. She also had some intermittent rectal bleeding, last as per patient was a few months ago. As per her granddaughter who is an RN, she has had only blood-tinged brown stool, which is only noticeable against white background. She denies any melena. No hematochezia. No abdominal pain. No coffee-ground emesis or hematemesis. She has had decreasing appetite, and failure to thrive. Over the past several months. She denies any chest pain or shortness of breath. Has occasional nausea, but no emesis. She has never had a colonoscopy. Her hemoglobin and hematocrit were 8.1 and 25.2 respectively with an MCV of 77. Iron is 16, TIBC is 115, iron saturation 14, and ferritin is 689. Her INR is 1.1 as of 10/2016 and her platelets on this admission were 512. PAST MEDICAL HISTORY: Hypertension, chronic kidney disease, depression, lung mass. FAMILY HISTORY: Coronary artery disease. SOCIAL HISTORY: Quit tobacco in 1971. No alcohol or drug use. Patient lives with her elderly . PHYSICAL EXAMINATION: VITAL SIGNS: Patient is afebrile. Her vital signs are stable. GENERAL: The patient has a depressed affect, in no acute distress. HEENT: Atraumatic, normocephalic. Anicteric. Mucous membranes moist. CARDIAC: S1, S2. CHEST: Clear. ABDOMEN: Soft, nontender, and nondistended. Bowel sounds normoactive. LABORATORY DATA: Show WBC 9.5, hemoglobin 8.1, hematocrit 25.2, platelets 512, MCV 77. Sodium 139, potassium 4, chloride 108, bicarb 19, BUN 17, creatinine 1.8, glucose 95. Liver enzymes normal. Lipase normal. Iron studies as dictated above. IMPRESSION AND PLAN: Rectal bleeding and anemia in this patient with no prior history of colonoscopy. I have reviewed the procedure, indications, risks, benefits, and alternatives with the patient and have encouraged and advised her to pursue colonoscopy, however, she would like to defer at this time. I have discussed also this with her granddaughter who was at her bedside at this time, and again, who is an RN, and they would like to at least see Consultation Report [place] [id number] [place]. [address] NAME: FRED CORDERO : 33 STATUS : ADM IN [facility]#: [id number] AGE: 81 ADM/REG DATE : 12/13/16 MR#: [id number] REPORT SERV DATE: 12/15/16 DICTATED BY: ABBY ALLEN DATE: 12/15/16 REPORT STATUS : Draft TRANSCRIBED BY: LEONOR DATE: 12/15/16 what the results of her EBUS are before pursuing a colonoscopy. Please notify us if a decision is made by the patient to go ahead and pursue endoscopic evaluation. Questions and concerns were addressed. ESTEBAN/LEONOR Abby Allen MD / [id number] CC: Erin Lovett M.D.
[~2016-12-13 17:21] MED LIST: B12250T PO; COZAAR100 MG PO; HALF81 PO; LEVAQUIN750 MG PO; LEVOTHYROXIN50 MCG PO; MAX25 PO; NORV5 PO; PRAVACHOL80 MG PO; PRILO PO; PROAIR HFA INH; REM15 PO; SYN.05 PO; TOPXL50 PO; VITAMIN D31000 UNIT PO
[2016-12-13] MEDS ORDERED: TOPXL50 PO (17:59)
[2016-12-13] MEDS ORDERED: LEVOTHYROXIN50 MCG PO (17:59)
[2016-12-13] MEDS ORDERED: PRILO PO (18:00)
[2016-12-13] MEDS ORDERED: CYANOCOBALAMIN PO (18:01)
[2016-12-13] MEDS ORDERED: MAXIMUM D3 PO (18:01)
[2016-12-13] MEDS ORDERED: ASAB PO (18:01)
[2016-12-13] MEDS ORDERED: REM15 PO (18:02)
[2016-12-13] MEDS ORDERED: PRAVACHOL80 MG PO (18:02)
[2016-12-13 18:19] LABS: BASOPHILS 0.2 %; BASOPHILS ABSOLUTE 0.02 10/3/uL (0.0-0.16); EOSINOPHILS 1.6 %; EOSINOPHILS ABSOLUTE 0.15 10/3/uL (0.0-0.53); HEMATOCRIT 29.8 % (36.0-48.0); HEMOGLOBIN 9.4 g/dL (12.0-16.0); IMMATURE GRANULOCYTES 0.4 %; IMMATURE GRANULOCYTES ABSOLUTE 0.04 10/3/uL (0.0-0.11); LYMPHOCYTES 21.8 %; LYMPHOCYTES ABSOLUTE 2.08 10/3/uL (0.67-4.30); MEAN CORPUS HGB CONC 31.5 g/dL (32.0-36.0); MEAN CORPUSCULAR HEMOGLOB 24.3 pg (26.0-34.0); MEAN PLATELET VOLUME 8.8 fL (9.2-13.0); MONOCYTES 9.7 %; MONOCYTES ABSOLUTE 0.92 10/3/uL (0.21-1.20); NEUTROPHILS 66.3 %; NEUTROPHILS ABSOLUTE 6.32 10/3/uL (2.02-8.40); RBC DISTRIBUTION WIDTH 17.8 % (12.0-16.0); RED CELL COUNT 3.87 10/6/uL (4.0-5.6)
[2016-12-13 18:24] LABS: ER CBC TAT 0 Hrs 08 Mins; PLATELET COUNT 512 10/3/uL (150-400); WHITE BLOOD CELLS 9.5 10/3/uL (4.5-10.5)
[2016-12-13 18:25] LABS: MANUAL DIFF NO %
[2016-12-13 18:33] LABS: BUN (BLOOD UREA NITROGEN) 18 MG/DL (6-23); CHLORIDE, SERUM 103 MMOL/L (96-112); CO2 (CARBON DIOXIDE) 24 MMOL/L (24-34); CPK (IF ELEVATED MB BANDS) 23 U/L (0-200); CREATININE 2.12 MG/DL (0.55-1.02); GFR AFRICAN AMERICAN 24 ML/MIN (>=60); GFR NON AFRICAN AMERICAN 21 ML/MIN (>=60); GLUCOSE, SERUM 115 MG/DL (60-99); POTASSIUM, SERUM 3.4 MMOL/L (3.5-5.3); SGOT(AST) 27 U/L (5-40); SGPT(ALT) 21 U/L (5-65); SODIUM, SERUM 138 MMOL/L (135-148); TOTAL BILIRUBIN 0.4 MG/DL (0-1.2); TOTAL PROTEIN 7.9 G/DL (6.0-8.5)
[2016-12-13 18:34] LABS: A/G RATIO 0.3 (0.7-1.9); ALBUMIN 1.7 G/DL (3.5-5.0); ALKALINE PHOSPHATASE 95 U/L (45-117); CALCIUM, SERUM 8.6 MG/DL (8.5-10.4); GLOBULIN 6.2 G/DL (2.5-4.1)
[2016-12-13 18:41] LABS: ANISOCYTOSIS 1+ (5-10/OIF) (0-5/OIF); BAND NEUTROPHILS 4 %; ER DIFF TAT 0 Hrs 25 Mins; LYMPHOCYTES 8 %; LYMPHOCYTES ABSOLUTE (CALC) 0.76 10/3/uL (0.67-4.30); MONOCYTES 9 %; MONOCYTES ABSOLUTE (CALC) 0.86 10/3/uL (0.21-1.20); NEUTROPHILS ABSOLUTE (CALC) 7.89 10/3/uL (2.02-8.40); OVALOCYTES 1+ (3-10/OIF) (0-2/OIF); PLATELET ESTIMATE SLT INC (ADEQUATE); SCHISTOCYTES OCC (0-2/OIF); SEGMENTED NEUTROPHIL (0) 79 %; TOTAL NUCLEATED CELLS 100
[2016-12-14 01:09] LABS: T PROTEIN (ELECT)(NOT OR 6.5 G/DL (6.0-8.5)
[2016-12-14 01:14] LABS: PHOSPHORUS, SERUM 2.7 MG/DL (2.5-4.5)
[2016-12-14 01:18] LABS: ULTRASENSITIVE TSH 0.911 MCIU/ML (0.358-3.740)
[2016-12-14 05:34] LABS: BUN (BLOOD UREA NITROGEN) 17 MG/DL (6-23); CALCIUM, SERUM 8.8 MG/DL (8.5-10.4); CHLORIDE, SERUM 108 MMOL/L (96-112); GFR AFRICAN AMERICAN 30 ML/MIN (>=60); GFR NON AFRICAN AMERICAN 26 ML/MIN (>=60); GLUCOSE, SERUM 95 MG/DL (60-99); SODIUM, SERUM 139 MMOL/L (135-148)
[2016-12-14 05:36] LABS: CO2 (CARBON DIOXIDE) 19 MMOL/L (24-34)
[2016-12-14 12:54] LABS: A/G 0.38 RATIO (0.9-2.10); ALB RELATIVE % 27.4 % (60.0-89.0); ALBUMIN (ELECTRO) 1.78 GM/DL (3.2-5.5); ALPHA 1 RELAT % (NOT ORD) 6.2 % (1.0-4.0); ALPHA 2 (ELECTRO) 1.38 GM/DL (0.5-1.10); ALPHA 2 RELAT % 21.3 % (4.5-26.0); BETA GLOBULIN (SPE) 1.12 GM/DL (0.60-1.30); BETA RELATIVE % 17.3 % (9.0-22.0); GAMMA GLOBULIN (SPE) 1.81 G/DL (0.70-1.60); GAMMA RELAT % 27.8 % (6.0-22.0)
[2016-12-14 16:09] LABS: HEMOGLOBIN 8.1 g/dL (12.0-16.0)
[2016-12-14 16:10] LABS: HEMATOCRIT 25.2 % (36.0-48.0)
[2016-12-14 21:01] LABS: HEMATOCRIT 26.4 % (36.0-48.0); HEMOGLOBIN 8.3 g/dL (12.0-16.0)
[2016-12-15 06:09] LABS: BASOPHILS 0.2 %; BASOPHILS ABSOLUTE 0.01 10/3/uL (0.0-0.16); EOSINOPHILS 3.9 %; EOSINOPHILS ABSOLUTE 0.25 10/3/uL (0.0-0.53); HEMATOCRIT 24.1 % (36.0-48.0); HEMOGLOBIN 7.8 g/dL (12.0-16.0); IMMATURE GRANULOCYTES 0.6 %; IMMATURE GRANULOCYTES ABSOLUTE 0.04 10/3/uL (0.0-0.11); LYMPHOCYTES 15.3 %; LYMPHOCYTES ABSOLUTE 0.99 10/3/uL (0.67-4.30); MEAN CORPUS HGB CONC 32.4 g/dL (32.0-36.0); MEAN CORPUSCULAR HEMOGLOB 24.7 pg (26.0-34.0); MEAN CORPUSCULAR VOLUME 76.3 fL (80-100); MEAN PLATELET VOLUME 8.1 fL (9.2-13.0); MONOCYTES 9.7 %; MONOCYTES ABSOLUTE 0.63 10/3/uL (0.21-1.20); NEUTROPHILS 70.3 %; NEUTROPHILS ABSOLUTE 4.55 10/3/uL (2.02-8.40); PLATELET COUNT 412 10/3/uL (150-400); RBC DISTRIBUTION WIDTH 17.9 % (12.0-16.0); RED CELL COUNT 3.16 10/6/uL (4.0-5.6); WHITE BLOOD CELLS 6.5 10/3/uL (4.5-10.5)
[2016-12-15 06:15] LABS: INTERNATIONAL NORMAL RATI 1.4 UNITS (-); PROTIME (NOT ORD) 17.3 SEC (12.0-14.5)
[2016-12-15 06:17] LABS: MANUAL DIFF NO %
[2016-12-15 06:20] LABS: CALCIUM, SERUM 8.4 MG/DL (8.5-10.4); CHLORIDE, SERUM 107 MMOL/L (96-112); CO2 (CARBON DIOXIDE) 22 MMOL/L (24-34); GFR AFRICAN AMERICAN 34 ML/MIN (>=60); GFR NON AFRICAN AMERICAN 29 ML/MIN (>=60); GLUCOSE, SERUM 93 MG/DL (60-99); PHOSPHORUS, SERUM 2.5 MG/DL (2.5-4.5); POTASSIUM, SERUM 3.5 MMOL/L (3.5-5.3); SODIUM, SERUM 141 MMOL/L (135-148)
[2016-12-15 06:23] LABS: BUN (BLOOD UREA NITROGEN) 10 MG/DL (6-23)
[2016-12-16 04:14] LABS: BASOPHILS 0.3 %; BASOPHILS ABSOLUTE 0.02 10/3/uL (0.0-0.16); EOSINOPHILS 3.6 %; EOSINOPHILS ABSOLUTE 0.26 10/3/uL (0.0-0.53); HEMOGLOBIN 8.9 g/dL (12.0-16.0); IMMATURE GRANULOCYTES 1.7 %; IMMATURE GRANULOCYTES ABSOLUTE 0.12 10/3/uL (0.0-0.11); LYMPHOCYTES 18.4 %; LYMPHOCYTES ABSOLUTE 1.32 10/3/uL (0.67-4.30); MEAN CORPUS HGB CONC 32.1 g/dL (32.0-36.0); MEAN CORPUSCULAR HEMOGLOB 25.1 pg (26.0-34.0); MEAN PLATELET VOLUME 8.2 fL (9.2-13.0); MONOCYTES 9.9 %; MONOCYTES ABSOLUTE 0.71 10/3/uL (0.21-1.20); NEUTROPHILS 66.1 %; NEUTROPHILS ABSOLUTE 4.75 10/3/uL (2.02-8.40); PLATELET COUNT 460 10/3/uL (150-400); RBC DISTRIBUTION WIDTH 17.4 % (12.0-16.0); RED CELL COUNT 3.55 10/6/uL (4.0-5.6); WHITE BLOOD CELLS 7.2 10/3/uL (4.5-10.5)
[2016-12-16 04:19] LABS: HEMATOCRIT 27.7 % (36.0-48.0); MANUAL DIFF NO %
[2016-12-16 04:34] LABS: BUN (BLOOD UREA NITROGEN) 10 MG/DL (6-23); CALCIUM, SERUM 7.9 MG/DL (8.5-10.4); CHLORIDE, SERUM 110 MMOL/L (96-112); CO2 (CARBON DIOXIDE) 23 MMOL/L (24-34); GFR AFRICAN AMERICAN 32 ML/MIN (>=60); GFR NON AFRICAN AMERICAN 27 ML/MIN (>=60); GLUCOSE, SERUM 101 MG/DL (60-99); POTASSIUM, SERUM 3.1 MMOL/L (3.5-5.3); PREALBUMIN 5.2 MG/DL (17.0-43.0); SODIUM, SERUM 144 MMOL/L (135-148)
[2016-12-16 05:12] LABS: INTERNATIONAL NORMAL RATI 1.3 UNITS (-); PROTIME (NOT ORD) 16.4 SEC (12.0-14.5)
[2016-12-16 21:43] LABS: POTASSIUM, SERUM 4.5 MMOL/L (3.5-5.3)
[2016-12-18 04:56] LABS: BASOPHILS 0.2 %; BASOPHILS ABSOLUTE 0.02 10/3/uL (0.0-0.16); EOSINOPHILS ABSOLUTE 0.34 10/3/uL (0.0-0.53); HEMATOCRIT 29.2 % (36.0-48.0); HEMOGLOBIN 9.3 g/dL (12.0-16.0); IMMATURE GRANULOCYTES 1.4 %; IMMATURE GRANULOCYTES ABSOLUTE 0.12 10/3/uL (0.0-0.11); LYMPHOCYTES 14.5 %; LYMPHOCYTES ABSOLUTE 1.24 10/3/uL (0.67-4.30); MEAN CORPUS HGB CONC 31.8 g/dL (32.0-36.0); MEAN CORPUSCULAR HEMOGLOB 25.1 pg (26.0-34.0); MEAN CORPUSCULAR VOLUME 78.9 fL (80-100); MEAN PLATELET VOLUME 8.3 fL (9.2-13.0); MONOCYTES 9.9 %; MONOCYTES ABSOLUTE 0.85 10/3/uL (0.21-1.20); NEUTROPHILS ABSOLUTE 5.99 10/3/uL (2.02-8.40); PLATELET COUNT 414 10/3/uL (150-400); RBC DISTRIBUTION WIDTH 18.6 % (12.0-16.0); WHITE BLOOD CELLS 8.6 10/3/uL (4.5-10.5)
[2016-12-18 04:58] LABS: MANUAL DIFF NO %
[2016-12-18 05:31] LABS: A/G RATIO 0.3 (0.7-1.9); ALBUMIN 1.7 G/DL (3.5-5.0); ALKALINE PHOSPHATASE 91 U/L (45-117); BUN (BLOOD UREA NITROGEN) 8 MG/DL (6-23); CHLORIDE, SERUM 103 MMOL/L (96-112); CO2 (CARBON DIOXIDE) 24 MMOL/L (24-34); CREATININE 1.94 MG/DL (0.55-1.02); GFR AFRICAN AMERICAN 27 ML/MIN (>=60); GFR NON AFRICAN AMERICAN 23 ML/MIN (>=60); GLOBULIN 5.6 G/DL (2.5-4.1); GLUCOSE, SERUM 105 MG/DL (60-99); IMMUNOGLOBULIN A 733 MG/DL (70-420); IMMUNOGLOBULIN G 1510 MG/DL (673-1464); IMMUNOGLOBULIN M 64 MG/DL (30-270); PHOSPHORUS, SERUM 2.5 MG/DL (2.5-4.5); POTASSIUM, SERUM 3.8 MMOL/L (3.5-5.3); SGOT(AST) 25 U/L (5-40); SGPT(ALT) 16 U/L (5-65); SODIUM, SERUM 139 MMOL/L (135-148); TOTAL BILIRUBIN 0.4 MG/DL (0-1.2); TOTAL PROTEIN 7.3 G/DL (6.0-8.5)
[2016-12-18 05:51] LABS: CALCIUM, SERUM 8.9 MG/DL (8.5-10.4)
[2016-12-19 05:10] LABS: BASOPHILS 0.4 %; BASOPHILS ABSOLUTE 0.03 10/3/uL (0.0-0.16); EOSINOPHILS 2.6 %; EOSINOPHILS ABSOLUTE 0.21 10/3/uL (0.0-0.53); HEMATOCRIT 30.6 % (36.0-48.0); HEMOGLOBIN 9.6 g/dL (12.0-16.0); IMMATURE GRANULOCYTES 0.9 %; IMMATURE GRANULOCYTES ABSOLUTE 0.07 10/3/uL (0.0-0.11); LYMPHOCYTES ABSOLUTE 1.47 10/3/uL (0.67-4.30); MEAN CORPUS HGB CONC 31.4 g/dL (32.0-36.0); MEAN CORPUSCULAR VOLUME 79.7 fL (80-100); MEAN PLATELET VOLUME 8.6 fL (9.2-13.0); MONOCYTES 11.7 %; MONOCYTES ABSOLUTE 0.96 10/3/uL (0.21-1.20); NEUTROPHILS 66.4 %; NEUTROPHILS ABSOLUTE 5.44 10/3/uL (2.02-8.40); PLATELET COUNT 406 10/3/uL (150-400); RBC DISTRIBUTION WIDTH 19.4 % (12.0-16.0); RED CELL COUNT 3.84 10/6/uL (4.0-5.6); WHITE BLOOD CELLS 8.2 10/3/uL (4.5-10.5)
[2016-12-19 05:13] LABS: MANUAL DIFF NO %
[2016-12-19 05:25] LABS: BUN (BLOOD UREA NITROGEN) 11 MG/DL (6-23); CALCIUM, SERUM 8.8 MG/DL (8.5-10.4); CHLORIDE, SERUM 103 MMOL/L (96-112); CO2 (CARBON DIOXIDE) 25 MMOL/L (24-34); CREATININE 1.88 MG/DL (0.55-1.02); GFR AFRICAN AMERICAN 28 ML/MIN (>=60); GFR NON AFRICAN AMERICAN 24 ML/MIN (>=60); GLUCOSE, SERUM 98 MG/DL (60-99); SODIUM, SERUM 140 MMOL/L (135-148)
[2016-12-20 05:40] LABS: BASOPHILS 0.4 %; BASOPHILS ABSOLUTE 0.03 10/3/uL (0.0-0.16); EOSINOPHILS ABSOLUTE 0.23 10/3/uL (0.0-0.53); HEMATOCRIT 29.8 % (36.0-48.0); HEMOGLOBIN 9.4 g/dL (12.0-16.0); IMMATURE GRANULOCYTES ABSOLUTE 0.08 10/3/uL (0.0-0.11); LYMPHOCYTES 15.2 %; LYMPHOCYTES ABSOLUTE 1.16 10/3/uL (0.67-4.30); MEAN CORPUS HGB CONC 31.5 g/dL (32.0-36.0); MEAN CORPUSCULAR HEMOGLOB 25.1 pg (26.0-34.0); MEAN CORPUSCULAR VOLUME 79.7 fL (80-100); MEAN PLATELET VOLUME 8.4 fL (9.2-13.0); MONOCYTES 10.6 %; MONOCYTES ABSOLUTE 0.81 10/3/uL (0.21-1.20); NEUTROPHILS 69.8 %; NEUTROPHILS ABSOLUTE 5.34 10/3/uL (2.02-8.40); PLATELET COUNT 439 10/3/uL (150-400); RBC DISTRIBUTION WIDTH 19.3 % (12.0-16.0); RED CELL COUNT 3.74 10/6/uL (4.0-5.6); WHITE BLOOD CELLS 7.7 10/3/uL (4.5-10.5)
[2016-12-20 05:44] LABS: MANUAL DIFF NO %
[2016-12-20 05:51] LABS: BUN (BLOOD UREA NITROGEN) 13 MG/DL (6-23); CALCIUM, SERUM 8.7 MG/DL (8.5-10.4); CHLORIDE, SERUM 103 MMOL/L (96-112); CO2 (CARBON DIOXIDE) 26 MMOL/L (24-34); CREATININE 1.95 MG/DL (0.55-1.02); GFR AFRICAN AMERICAN 27 ML/MIN (>=60); GFR NON AFRICAN AMERICAN 23 ML/MIN (>=60); GLUCOSE, SERUM 96 MG/DL (60-99); POTASSIUM, SERUM 3.9 MMOL/L (3.5-5.3); SODIUM, SERUM 134 MMOL/L (135-148)
[2016-12-21 05:17] LABS: KAPPA FLC 19.9 mg/dL (0.33-1.94); KAPPA LAMBDA FLC RATIO 1.46 (0.26-1.65); LAMBDA FLC 13.6 mg/dL (0.57-2.63)
[2016-12-21 07:18] LABS: BUN (BLOOD UREA NITROGEN) 12 MG/DL (6-23); CALCIUM, SERUM 8.6 MG/DL (8.5-10.4); CHLORIDE, SERUM 100 MMOL/L (96-112); CO2 (CARBON DIOXIDE) 26 MMOL/L (24-34); CREATININE 2.02 MG/DL (0.55-1.02); GFR AFRICAN AMERICAN 26 ML/MIN (>=60); GFR NON AFRICAN AMERICAN 22 ML/MIN (>=60); GLUCOSE, SERUM 96 MG/DL (60-99); POTASSIUM, SERUM 3.9 MMOL/L (3.5-5.3); SODIUM, SERUM 137 MMOL/L (135-148)
[2016-12-22 06:55] LABS: BUN (BLOOD UREA NITROGEN) 13 MG/DL (6-23); CHLORIDE, SERUM 97 MMOL/L (96-112); CO2 (CARBON DIOXIDE) 27 MMOL/L (24-34); GFR AFRICAN AMERICAN 20 ML/MIN (>=60); GFR NON AFRICAN AMERICAN 17 ML/MIN (>=60); GLUCOSE, SERUM 97 MG/DL (60-99); SODIUM, SERUM 138 MMOL/L (135-148)
[2016-12-22 06:57] LABS: CALCIUM, SERUM 9.7 MG/DL (8.5-10.4); POTASSIUM, SERUM 2.8 MMOL/L (3.5-5.3)
[2016-12-23 04:46] LABS: CALCIUM, SERUM 9.7 MG/DL (8.5-10.4); CHLORIDE, SERUM 104 MMOL/L (96-112); CO2 (CARBON DIOXIDE) 25 MMOL/L (24-34); GFR AFRICAN AMERICAN 18 ML/MIN (>=60); GFR NON AFRICAN AMERICAN 16 ML/MIN (>=60); GLUCOSE, SERUM 95 MG/DL (60-99); POTASSIUM, SERUM 3.8 MMOL/L (3.5-5.3); SODIUM, SERUM 140 MMOL/L (135-148)
[2016-12-23 04:48] LABS: BUN (BLOOD UREA NITROGEN) 23 MG/DL (6-23)
[2016-12-23 14:19] LABS: BUN (BLOOD UREA NITROGEN) 25 MG/DL (6-23); CALCIUM, SERUM 9.6 MG/DL (8.5-10.4); CHLORIDE, SERUM 106 MMOL/L (96-112); CO2 (CARBON DIOXIDE) 22 MMOL/L (24-34); GFR AFRICAN AMERICAN 19 ML/MIN (>=60); GFR NON AFRICAN AMERICAN 16 ML/MIN (>=60); GLUCOSE, SERUM 95 MG/DL (60-99); POTASSIUM, SERUM 3.9 MMOL/L (3.5-5.3); SODIUM, SERUM 141 MMOL/L (135-148)
[2016-12-23 14:37] LABS: ASCORBIC ACID (UR NOT ORDER) NEG (NEG); BILIRUBIN, URINE NEGATIVE (NEG); KETONE, URINE TRACE MG/DL (NEG); LEUKOCYTE ESTERASE(NOT OR NEG (NEG); WBC (NOT ORDERED) (RFLEX) 5 (0-5)
== END 2016-12-23 17:12 | DRG 166 ==
LOC: ER 17:21 → 5NO 21:01
PROVIDERS: Hospitalist; Internal Medicine; Internal Medicine Hematology & Oncology; Physician Assistant Medical
PROC: 0BBF8ZX Excision of Right Lower Lung Lobe, Via Natural or Artificial Opening Endoscopic, Diagnostic (ICD-10-PCS; 2016-12-16)
PROC: 0B9F8ZX Drainage of Right Lower Lung Lobe, Via Natural or Artificial Opening Endoscopic, Diagnostic (ICD-10-PCS; 2016-12-16)
PROC: 07B74ZX Excision of Thorax Lymphatic, Percutaneous Endoscopic Approach, Diagnostic (ICD-10-PCS; principal; 2016-12-16 14:13)
DX: C34.31 Malignant neoplasm of lower lobe, right bronchus or lung (principal); E43 Unspecified severe protein-calorie malnutrition; K92.2 Gastrointestinal hemorrhage, unspecified; N18.3 Chronic kidney disease, stage 3 (moderate); F33.9 Major depressive disorder, recurrent, unspecified; R55 Syncope and collapse; I12.9 Hypertensive chronic kidney disease with stage 1 through stage 4 chronic kidney disease, or unspecified chronic kidney disease; R62.7 Adult failure to thrive; K21.9 Gastro-esophageal reflux disease without esophagitis; E78.5 Hyperlipidemia, unspecified; D50.9 Iron deficiency anemia, unspecified; Z79.82 Long term (current) use of aspirin; Z79.899 Other long term (current) drug therapy; Z88.5 Allergy status to narcotic agent; Z82.49 Family history of ischemic heart disease and other diseases of the circulatory system; Z87.891 Personal history of nicotine dependence; Z90.710 Acquired absence of both cervix and uterus; Z66 Do not resuscitate
CPT/HCPCS: 36415; 70551; 71010; 80048; 80053; 81001; 82272; 82550; 82728; 82784; 82962; 83540; 83550; 83690; 83735; 83883; 83883-59; 84100; 84132; 84134; 84155; 84165; 84443; 85014; 85018; 85025; 85610; 85652; 86334; 86850; 86900; 86901; 86920; 88112; 88172; 88173; 88305; 88313; 88333; 88341; 88342; 93005; 94640; 96360; 97110-GP; 97116-GP; 97162-GP; 97530-GP; 99285; A9270-GY; C1725; C9113; J2405; J2710; J2916; J3010; J3475; P9016; P9047